=== PATIENT | male | born 2000 | race Caucasian/White ===

== ENCOUNTER 2023-11-22 17:35 | Emergency (ER) | payer OTHER ==
[2023-11-22 18:08] VITALS: BP 134/69; O2SAT 98
--- NOTE | 2023-11-22 18:32 | ED Physician Documentation ---
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 No other bone or joint problems. PD PAST MEDICAL HISTORY - Past Medical History Past Medical History: No - Past Surgical History Past Surgical History: No - Present Medications Home Medications: Ambulatory Orders Medication Instructions Recorded Confirmed Escitalopram Oxalate [Lexapro] 20 mg PO DAILY 11/22/23 11/22/23 ISOtretinoin [Accutane] 30 mg PO BID 11/22/23 11/22/23 - Allergies Allergies/Adverse Reactions: Allergies Allergy/AdvReac Type Severity Reaction Status Date / Time No Known Drug Allergies Allergy Verified 11/22/23 18:01 - Social History Does the pt smoke?: No Smoking Status: Never smoker Does the pt drink ETOH?: Yes Does the pt have substance abuse?: No - Immunizations Immunizations are current?: No PD ED PE NORMAL - Vitals Vital signs reviewed: Yes - General General: Alert and oriented X 3, No acute distress - Extremities Extremities: Other (Focal tenderness overlying the tibialis anterior tendon of the medial ankle. No tenderness over either malleolus. He does have pain with external rotation of the ankle.) - Neuro Neuro: Alert and oriented X 3 Results - Vitals Vitals: Vital Signs - 24 hr 11/22/23 11/22/23 11/22/23 17:57 18:29 19:13 Temperature 36.7 C Heart Rate 62 Respiratory 14 16 16 Rate Blood Pressure 134/69 H O2 Saturation 98 Oxygen O2 Source Room air - Rads (name of study) Three-view x-ray of the right ankle was negative/normal. Relevant Findings:: Final report received, EMP independent interpretation of test PD Medical Decision Making - ED course ED course: Seems like a tendinitis of the tibialis anterior tendon. He says it feels better when he is wearing his combat boots so advised to do so and [place] for [place]. He declined the need for a work note. Departure - Departure Disposition: 01 Home, Self Care Clinical Impression: Tendinitis of ankle Condition: Good Record reviewed to determine appropriate education?: Yes Instructions: Tendonitis and Tenosynovitis Comments: The x-ray looks normal, your examination is consistent with a tendinitis of the tibialis anterior tendon. You should take ibuprofen as needed for pain and wear boots for the most part. I would encourage you not to do basketball and [place] for referral for physical therapy. Return if worse. Forms: PCP List Discharge Date/Time: 11/22/23 19:14
--- NOTE | 2023-11-22 19:06 | XRAY Report ---
PROCEDURE: Ankle 3+V RT INDICATIONS: Trauma TECHNIQUE: 3 views of the ankle were acquired. COMPARISON: None. FINDINGS: Bones: No fractures or dislocations. Ankle mortise is normally aligned. No suspicious bony lesions . Soft tissues: No tibiotalar joint effusion. Achilles tendon appears normal. IMPRESSION: No acute bony abnormality. If there is persistent clinical concern for a radiographically occult fracture, recommend immobilizat ion and repeat imaging in 10 to 14 days. Reviewed by: Adi Zhao MD on 11/22/2023 7:05 PM PDT Approved by: Adi Zhao MD on 11/22/2023 7:05 PM PDT Station ID: [id number]
== END 2023-11-22 19:14 | disposition home or self-care (01) ==
LOC: ED 17:35
DX: M77.51 Other enthesopathy of right foot and ankle (principal)
CPT/HCPCS: 99283

== ENCOUNTER 2024-02-05 15:26 | Outpatient (CLI) | payer OTHER ==
--- NOTE | 2024-02-05 16:26 | Sleep Patient Instructions ---
Sleep Center Visit Summary - Patient Visit Information Reason for Visit: Initial consult for evaluation of sleep disordered breathing and other sleep issues. - Patient Instructions Instructions Attached: Sleep Study Home Monitor Additional Instructions: You will be completing a sleep study, either an in-lab polysomnography (PSG) or home sleep study (HST). You will follow-up in the sleep care office after the sleep study is completed to hear the results and talk about therapy, if needed. You will be called by our office staff to schedule this appointment, but you may contact us with any questions. - Clinic Information Contact: [facility] [address] [place] [address] [email or web address] T: [phone]
--- NOTE | 2024-02-05 16:30 | SLEEP CARE CONSULTATION ---
Information from patient questionnaire entered by Kerry Garduno. I have reviewed and concur with the information entered by Kerry Garduno. This document represents the service I personally performed and the decisions made by me, Elizabeth Prater ARNP. History of Present Illness Service Date and Time: 02/05/2024 1526 Reason for Visit: New patient Chief Complaint: reports: Unrefreshed sleep, Snoring, Excessive daytime sleepiness, Fatigue, Frequent awakenings at night Date of Onset: 6+MONTHS Usual bedtime: 0100 Time it takes to fall asleep: 10MINS Snores at night: Yes Observed to quit breathing while asleep: No Sleeps alone due to snoring: No Number of times waking at night: 1-2 Reasons for waking at night: reports: Bathroom, Other (UNKNOWN, BACK PAIN). denies: Choking, Gasping for air Toss, Turn, or Twitch while sleeping: Yes Recalls having dreams: Yes Usually gets out of bed at: 0930 Feels refreshed in the morning: No Morning headache: No Sleepy or fatigued during the day: Yes Ever fallen asleep while driving: No Takes day naps: No Dreams during day naps: No Prior sleep studies: No Additional HPI information: I had the pleasure of seeing CHARITY PEARSON today regarding the possibility of him having a sleep disorder. His current complaints are excessive daytime sleepiness, fatigue, frequent night awakenings, snoring and unrefreshed sleep in the last 6 months. He says he prioritize his sleep. He is getting 7-8 hours of sleep but he is waking up feeling like he is not rested. He is able to go to sleep without problem and wakes up very few times. He is tired throughout the day. - Parasomnia Symptoms Ever been unable to move upon waking from sleep: No Walks in sleep: No Talks in sleep: Yes (has woke himself up talking) Ever acted out dreams in sleep: No Ever felt weak in the knees when startled or emotional: No Bothered by creepy, crawly, restless sensations in legs: No Problems with memory or concentration: Yes (both) Subjective Initial [place] Sleepiness Scale score: 15 (02/05/24) Past Medical History Past Medical History: reports: Anxiety Social History The patient's occupation is a AM. Patient is Single and lives in . Have you smoked in the past 12 months: No Alcohol use: Yes Alcohol amount and frequency: NOT MUCH AND RARELY Caffeine use: Yes Caffeine amount and frequency: 5X A WEEK 1 Family History Family history of sleep disordered breathing: Yes Family Hx Sleep Apnea: Father: Snoring Allergies and Home Medications Known drug allergies: No Drug allergies reviewed: Yes Home medication list reviewed: Yes (as listed) Allergy and home medication list: Allergies No Known Drug Allergies Allergy (Verified 02/05/24 15:26) Home Medications Medication Instructions Recorded Confirmed Last Taken Type Escitalopram Oxalate [Lexapro] 20 mg PO DAILY 11/22/23 02/05/24 Unknown History ISOtretinoin [Accutane] 30 mg PO BID 11/22/23 02/05/24 Unknown History Creatine Monohydrate [Cytotine] See Rx Instructions .ROUTE .COMPLEX 02/05/24 02/05/24 Unknown History Multivitamin See Rx Instructions .ROUTE .COMPLEX 02/05/24 02/05/24 Unknown History Protein Powder See Rx Instructions .ROUTE .COMPLEX 02/05/24 02/05/24 Unknown History Review of Systems Cardiovascular: denies: high blood pressure Gastrointestinal: denies: heartburn Neurological: denies: headaches Psychiatric: reports: anxiety. denies: depression Ear/Nose/Throat: reports: wisdom teeth removed. denies: tonsillectomy Physical Exam Vital signs obtained and entered by: KERRY Villar MA Blood Pressure: 119/78 (RIGHT ARM) Cuff size: regular Heart Rate: 76 O2 Saturation: 95 Height: 5 ft 9 in Weight: 179 lb 9.6 oz Body Mass Index: 26.5 BMI Classification: Overweight Neck circumference: 17.5 Mouth and throat: narrow oropharynx Soft palate: long Hard palate: normal Uvula: normal Uvula visualization: 25% Mallampati Class III Tongue: normal in size Tonsils: 1+ Neck: normal w/o lymphadenopathy or thyromegaly Heart: regular rate and rhythm Lungs: clear bilaterally Impression and Plan 1. Suspected Obstructive Sleep Apnea-Hypopnea Syndrome, as suggested by a histo ry of loud and irregular snoring, unrefreshed sleep, cognitive impairment, and excessive daytime sleepiness. Narrow oropharynx and obesity are common predisposing factors for obstructive sleep apnea-hypopnea syndrome. I recommend proceeding to polysomnography to confirm the diagnosis and to assess severity. If the patient has significant sleep disordered breathing, a manual CPAP titration study will also be performed to find the optimal treatment pressure. I informed the patient of what the sleep studies involve and after some discussion, obtained agreement to proceed. The pathophysiology of obstructive sleep apnea-hypopnea syndrome was discussed with the patient and health risks of cardiovascular and cerebrovascular disease if not treated. Risks of drowsy driving discussed in detail and patient advised to avoid long distance driving and to assembler for puller over hand at the first sign of drowsiness. Patient agreed to plan. * Schedule polysomnography * Avoid long distance driving or driving when feeling sleepy. * Avoid alcohol, sedative and muscle relaxant around bedtime. * Attempt to lose weight. * Review instructions provided by trained office staff on how to prepare for the sleep study. * Return for follow-up after sleep study completed. Counseling Topics: Weight control Plan: PSG/HST and followup Visit Type: In Office Time Spent with Patient (minutes): 23 Provider Statement: I spent 100% of the Face to Face Visit with the patient with greater than 50% spent counseling the patient and coordination of care.
[2024-02-05 16:38] VITALS: BP 119/78; O2SAT 95
== END 2024-02-05 15:27 | disposition home or self-care (01) ==
LOC: SC 15:26
PROVIDERS: ATTEND Nurse Practitioner Family
DX: R06.83 Snoring (principal); G47.8 Other sleep disorders; R41.89 Other symptoms and signs involving cognitive functions and awareness; G47.10 Hypersomnia, unspecified; E66.3 Overweight; Z68.25 Body mass index [BMI] 25.0-25.9, adult
CPT/HCPCS: 99202; 99212

== ENCOUNTER 2024-02-12 09:27 | Outpatient (CLI) | payer OTHER | END 2024-02-12 09:28 | disposition home or self-care (01) | LOC: SC 09:27 | PROVIDERS: ATTEND Nurse Practitioner Family | DX: G47.33 Obstructive sleep apnea (adult) (pediatric) (principal); R09.02 Hypoxemia; E66.3 Overweight; Z68.26 Body mass index [BMI] 26.0-26.9, adult | CPT/HCPCS: 95806 ==